=== PATIENT | male | born 1985 | race Caucasian/White ===

== ENCOUNTER 2020-07-21 13:28 | Inpatient (IN) | payer MEDICAID, SELFPAY ==
[2020-07-21] VITALS (10 sets, daily range): BP systolic 141–168; BP diastolic 73–112; PULSE 70–110; RESP 10–20; TEMP 36.6–36.7; O2SAT 92–98; BMI 25.0
--- NOTE | 2020-07-21 13:36 | XR_ITS ---
WS: [id number] Portable AP upright chest, 07/21/2020 Clinical Data: dyspnea/cough Comparison: None. Findings: No nodules, masses or effusions are seen. The heart is normal. The pulmonary vascularity is not increased. No pneumonia or pneumothorax is seen. Monitor leads are on the chest wall. XR/XR chest 1V portable [id number] Impression: Negative chest.
--- NOTE | 2020-07-21 13:53 | PC.NURSE ---
Sheriff Mcmanus at bedside, RT at bedside to draw ABG, and XR performed at bedside. Blood drawn by nurse, labeled and sent to lab.
[2020-07-21 13:57] LABS: ABG PCO2 56.2 mmHg (35-45); ABG PH Result 7.36 (7.35-7.45); Alveolar-Arterial Oxygen Gradi 1.7 mmHg (5-10); Arterial Blood Gas Hematocrit 40.3 % (42-52); Base Excess ABG 5.1 mmol/L (-2.0-2.0); Blood Gas Allen Test Pos; Blood Gas Operator Identificat glc; Blood Gas Sample Site Radial, left; Blood Gas Sample Type Arterial; Carboxyhemoglobin 2.8 %THgb (0.4-20.1); HGB O2 Sat 91.2 % (95-100); Ionized Calcium Level - ABG 1.3 mmol/L (1.1-1.4); Methemoglobin 0.3 % (0.4-1.5); Oxygen Device ROOM AIR; Oxygen Saturation ABG 94.1; Potassium Level - ABG 3.4 mmol/L (3.5-5.0); Total Hemoglobin 13.1 g/dL (14-18)
--- NOTE | 2020-07-21 14:15 | W.ED.OVERDOS ---
HPI - Overdose General: Chief Complaint: Overdose Stated Complaint: POST OVERDOSE/ N/V Time Seen by Provider: 07/21/20 13:36 History of Present Illness: HPI Narrative: 34-year-old male presents the emergency room via EMS in police custody. He had done some heroin earlier was found unresponsive when EMS arrived bystanders were performing CPR they stop CPR he was found to have a pulse and have respirations he was given Narcan and did become more awake. He is lethargic but answers questions now is complaining of some chest discomfort. He has a known history of drug abuse. MD complaint: accidental overdose Onset (ago): hour(s) Review of Systems General: Reports: ROS unobtainable due to mental status PFSH ED PFSH: Social History Smoking and tobacco status: current every day smoker cigarettes Alcohol intake: current Substance/Drug Use: current Substance/Drug use frequency: daily Substance/Drug use type: Heroin Physical Exam Const: COMMON NORMALS: no acute distress GENERAL APPEARANCE: cooperative and comfortable ORIENTATION/CONSCIOUSNESS: Yes awake, Yes oriented to person, Yes oriented to place and Yes oriented to time HENMT: COMMON NORMALS: normocephalic, atraumatic and hearing grossly normal bilaterally HEAD & SCALP: normocephalic and atraumatic Eye: COMMON NORMALS: Equal, round and reactive pupils present, EOMs intact bilaterally, conjunctivae normal and no scleral icterus CONJUNCTIVA: Yes conjunctivae normal PUPIL: Yes Equal, round and reactive pupils present Neck/C-Spine: COMMON NORMALS: full ROM, no lymphadenopathy, supple and no JVD Lymph: LYMPHATIC: no lymphadenopathy noted and no lymphedema noted Resp: COMMON NORMALS: normal respiratory effort, No retractions, No use of accessory muscles and clear to auscultation bilaterally AUSCULTATION: clear to auscultation bilaterally Cardio: COMMON NORMALS: no JVD, regular rate, regular rhythm and No murmurs present (Cardio) RATE: regular rate RHYTHM: regular rhythm GI: COMMON NORMALS: Soft to palpation and No hepatosplenomegaly present AUSCULTATION: Yes normoactive bowel sounds PALPATION: Yes Soft to palpation, No Tenderness to palpation present (GI), No Guarding due to palpation present (GI) and Yes No hepatosplenomegaly present Extremity: COMMON NORMALS: normal to inspection, capillary refill normal, no clubbing, cyanosis or edema, no calf tenderness and no pedal edema Neuro: SENSORIUM/ORIENTATION: Yes oriented to person, Yes oriented to place and Yes oriented to time Skin: COMMON NORMALS: no rashes or lesions noted GENERAL SKIN EXAM: no rashes or lesions noted Course Vital Signs: Vital signs: Vital Signs Temperature 98.1 F 07/22/20 13:13 Pulse Rate 64 07/22/20 13:13 Respiratory Rate 93 H 07/22/20 13:13 Blood Pressure 98/61 07/22/20 13:13 Pulse Oximetry 91 07/22/20 13:13 MDM - Overdose MDM Narrative: Medical decision making narrative: Patient given Narcan in the field he is somewhat sedate but is awake and alert enough to answer questions and give history. We monitored for time reviewed his labs we are going to discharge him custody of law enforcement. After brief discussion law enforcement patient began to complain of suicidal ideation. Went back and reassessed patient he expressly now stated he was going to harm himself whereas prior he had denied it. Discussed with Dr. Thompson will go ahead and admit to the [facility]. Lab Data: Labs: Lab Results 07/21/20 07/21/20 07/21/20 Range/Units 13:44 13:49 13:49 WBC Cancelled Corrected WBC Cancelled RBC Cancelled Hgb Cancelled Hct Cancelled MCV Cancelled MCH Cancelled MCHC Cancelled RDW Cancelled Plt Count Cancelled MPV Cancelled Gran % Cancelled Neut % (Auto) Cancelled Lymph % (Auto) Cancelled Bleckley % (Auto) Cancelled Eos % (Auto) Cancelled Baso % (Auto) Cancelled Neut # (Auto) Cancelled Lymph # (Auto) Cancelled Bleckley # (Auto) Cancelled Eos # (Auto) Cancelled Baso # (Auto) Cancelled Absolute Gran (aut o) Cancelled Nucleated RBC % (a uto) Cancelled Nucleated RBCs # Cancelled Specimen Type Arterial Sample Site Radial, left ABG pH 7.36 (7.35-7.45) ABG pCO2 56.2 H (35-45) mmHg ABG pO2 68.0 L (80.0-100.0) mmH g ABG HCO3 32.0 H (22-26) mmol/L ABG O2 Saturation 94.1 ABG Base Excess 5.1 H (-2.0-2.0) mmol/ L Dylan Test Pos A-a O2 Gradient 1.7 L (5-10) mmHg Hematocrit 40.3 L (42-52) % Hgb O2 Saturation 91.2 L (95-100) % Carboxyhemoglobin 2.8 (0.4-20.1) %THgb Methemoglobin 0.3 L (0.4-1.5) % Total Hemoglobin 13.1 L (14-18) g/dL Sodium 141.0 136 (131-143) mmol/L Potassium 3.4 L 3.6 (3.5-5.0) mmol/L Glucose 108.0 109 (70-115) mg/dL Ionized Calcium 1.3 (1.1-1.4) mmol/L O2 Delivery Device Room air FiO2 21.0 % Software Engineering Project Manager ID [id number] Chloride 97 L (98-107) mmol/L Carbon Dioxide 30 H (22-29) mmol/L Anion Gap 12.6 (5-19) BUN 15 (6-20) mg/dL Creatinine 0.8 (0.7-1.2) mg/dL GFR Calculation 110.0 (90-130) mL/min Calculated Osmolal ity 283 L (285-295) mOsm/k g Calcium 9.7 (8.5-10.5) mg/dL Magnesium 1.9 (1.7-2.3) mg/dL Total Bilirubin 0.4 (0.15-1.2) mg/dL AST 45 H (0-40) U/L ALT 60 H (0-41) U/L Alkaline Phosphata se 76 (40-130) IU/L Creatine Kinase 77 (39-308) U/L Total Protein 7.4 (6.6-8.7) g/dL Albumin 4.4 (3.5-5.2) g/dL Globulin 3.0 (1.3-4.6) g/dL Lipase 7 L (13-60) U/L Urine Color (Yellow) Urine Appearance (CLEAR) Urine pH (5-7) Ur Specific Gravit y (1.005-1.030) Urine Protein (Negative) Urine Glucose (UA) (Normal) Urine Ketones (Negative) Urine Blood (Negative) Urine Nitrate (Negative) Urine Bilirubin (Negative) Urine Urobilinogen (Negative) mg/dL Ur Leukocyte Rachele ase (Negative) 07/21/20 07/21/20 Range/Units 14:21 14:40 WBC 9.2 Corrected WBC RBC 4.57 Hgb 13.1 Hct 40.5 L MCV 88.6 MCH 28.7 MCHC 32.3 RDW 13.3 Plt Count 169 MPV 10.3 Gran % Neut % (Auto) 74.2 Lymph % (Auto) 18.8 Bleckley % (Auto) 5.0 Eos % (Auto) 1.1 Baso % (Auto) 0.7 Neut # (Auto) 6.81 Lymph # (Auto) 1.7 Bleckley # (Auto) 0.5 Eos # (Auto) 0.1 Baso # (Auto) 0.1 Absolute Gran (aut o) Nucleated RBC % (a uto) 0 Nucleated RBCs # 0.0 Specimen Type Sample Site ABG pH (7.35-7.45) ABG pCO2 (35-45) mmHg ABG pO2 (80.0-100.0) mmH g ABG HCO3 (22-26) mmol/L ABG O2 Saturation ABG Base Excess (-2.0-2.0) mmol/ L Dylan Test A-a O2 Gradient (5-10) mmHg Hematocrit (42-52) % Hgb O2 Saturation (95-100) % Carboxyhemoglobin (0.4-20.1) %THgb Methemoglobin (0.4-1.5) % Total Hemoglobin (14-18) g/dL Sodium (131-143) mmol/L Potassium (3.5-5.0) mmol/L Glucose (70-115) mg/dL Ionized Calcium (1.1-1.4) mmol/L O2 Delivery Device FiO2 % Software Engineering Project Manager ID Chloride (98-107) mmol/L Carbon Dioxide (22-29) mmol/L Anion Gap (5-19) BUN (6-20) mg/dL Creatinine (0.7-1.2) mg/dL GFR Calculation (90-130) mL/min Calculated Osmolal ity (285-295) mOsm/k g Calcium (8.5-10.5) mg/dL Magnesium (1.7-2.3) mg/dL Total Bilirubin (0.15-1.2) mg/dL AST (0-40) U/L ALT (0-41) U/L Alkaline Phosphata se (40-130) IU/L Creatine Kinase (39-308) U/L Total Protein (6.6-8.7) g/dL Albumin (3.5-5.2) g/dL Globulin (1.3-4.6) g/dL Lipase (13-60) U/L Urine Color Yellow (Yellow) Urine Appearance Clear (CLEAR) Urine pH 5 (5-7) Ur Specific Gravit y 1.030 (1.005-1.030) Urine Protein Neg (Negative) Urine Glucose (UA) Norm (Normal) Urine Ketones Negative (Negative) Urine Blood Neg (Negative) Urine Nitrate Negative (Negative) Urine Bilirubin Neg (Negative) Urine Urobilinogen Neg (Negative) mg/dL Ur Leukocyte Rachele ase Negative (Negative) Discharge Plan Discharge Patient Disposition: Admitted As Inpatient Admit Provider: Vance Thompson Clinical Impression: Drug overdose, Opioid abuse, Suicidal ideation Condition: Stable Discharge Orders: Discharge Order (Routine); Ordered 07/22/20 Ordered By: Vance Thompson Interventions: ED Discharge Assessment Last Done: 07/21/20 17:08 ED Charges Last Done: 07/21/20 17:08 Discharge Date/Time: 07/21/20 17:12 Coding Level of Care Code ED Farm Management Adviser for Stormy Mas
[2020-07-21 14:20] LABS: Alanine Aminotransferase 60 U/L (0-41); Albumin Level 4.4 g/dL (3.5-5.2); Alkaline Phosphatase 76 IU/L (40-130); Anion Gap 12.6 (5-19); Aspartate Amino Transferase 45 U/L (0-40); Blood Urea Nitrogen 15 mg/dL (6-20); Calcium 9.7 mg/dL (8.5-10.5); Carbon Dioxide 30 mmol/L (22-29); Chloride 97 mmol/L (98-107); Creatine Phosphokinase 77 U/L (39-308); Glucose 109 mg/dL (65-115); Lipase 7 U/L (13-60); Magnesium 1.9 mg/dL (1.7-2.3); Osmolality Calculated 283 mOsm/kg (285-295); Potassium 3.6 mmol/L (3.5-5.1); Sodium 136 mmol/L (136-145); Total Bilirubin 0.4 mg/dL (0.15-1.2); Total Protein 7.4 g/dL (6.6-8.7)
[2020-07-21 14:48] LABS: Add Urine Microscopic? NO
[2020-07-21 14:49] LABS: Basophils # 0.1 10^3/uL (0.0-0.1); Basophils % 0.7 %; Eosinophils # 0.1 10^3/uL (0.0-0.8); Eosinophils % 1.1 %; Hematocrit 40.5 % (42.0-52.0); Hemoglobin 13.1 g/dL (11.7-16.6); Lymphocytes # 1.7 10^3/uL (0.8-4.8); Lymphocytes % 18.8 %; Mean Corpuscular HGB Conc 32.3 g/dL (30.0-36.0); Mean Corpuscular Hemoglobin 28.7 pg (28.0-34.0); Mean Corpuscular Volume 88.6 fL (80-94); Mean Platelet Volume 10.3 fL (7.4-10.4); Monocytes # 0.5 10^3/uL (0.2-0.9); Neutrophils # 6.81 10^3/uL (1.8-7.7); Neutrophils % 74.2 %; Nucleated Red Blood Cells % 0 %; Platelet Count 169 10^3/cmm (130-400); Red Blood Count 4.57 10^6/uL (4.1-5.3); Red Cell Distribution Width 13.3 % (12.1-15.1); White Blood Count 9.2 10^3/uL (4.0-10.0)
[2020-07-21] MEDS: sodium chloride 0.9% 1,000 ML 999 ML IV ×2 (14:51→16:03)
[2020-07-21 14:57] LABS: Bilirubin Urine Neg (Negative); Blood Urine Neg (Negative); Glucose Urine UA Norm (Normal); Ketones Urine Negative (Negative); Leukocyte Esterase Urine Negative (Negative); Nitrate Urine Negative (Negative); Protein Urine Neg (Negative); Urine Appearance Clear (CLEAR); Urine Color Yellow (Yellow); Urobilinogen Urine Neg (Negative); pH Urine 5 (5-7)
--- NOTE | 2020-07-21 16:07 | PC.NURSE ---
When rounding on pt, officer in the room was noted to be telling pt Man, aren't you wanting to kill yourself? Aren't you suicidal? When attempting to discharge pt, pt states If you discharge me, I'm just going to go back to [facility] tonight. I want to go to the stress unit . Dr Styles notified and at bedside.
--- NOTE | 2020-07-21 18:07 | PC.NURSE ---
ARRIVAL TO UNIT, IV REMOVAL This nurse went to ED to take patient to [facility]. ED nurse stated they were unable to take patient down as they had influx of patients. IV removed by this nurse on arrival to unit. IV cath tip intact, covered with 2x2 and coban.
[2020-07-21] MEDS: acetaminophen 325 mg Tablet 650 MG PO (19:35)
[2020-07-21] MEDS: CLONazepam 1 mg Tablet PO (21:27)
[2020-07-22 06:00] VITALS: BP 98/61; PULSE 64; RESP 93; TEMP 36.7; O2SAT 91
[2020-07-22] MEDS: CLONazepam 1 mg Tablet PO (08:39)
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
[2020-07-22 13:13] VITALS: BP 98/61; PULSE 64; RESP 93; TEMP 36.7; O2SAT 91
== END 2020-07-22 13:52 | disposition home or self-care (01) | DRG 918 ==
LOC: ER 16:37 → NP 16:44
PROVIDERS: Admitting Provider Psychiatry & Neurology Psychiatry; Emergency Provider Family Medicine; PCP Nurse Practitioner; Visit Provider Psychiatry & Neurology Psychiatry
DX: T40.1X1A Poisoning by heroin, accidental (unintentional), initial encounter (principal); F32.1 Major depressive disorder, single episode, moderate; F15.20 Other stimulant dependence, uncomplicated; Y92.89 Other specified places as the place of occurrence of the external cause; F17.210 Nicotine dependence, cigarettes, uncomplicated; F43.12 Post-traumatic stress disorder, chronic; F41.1 Generalized anxiety disorder
CPT/HCPCS: 12345; 36415; 36600; 71045; 80051; 80053; 81003; 82550; 82810; 83690; 83735; 83986; 85025; 99283; J7030

== ENCOUNTER 2020-10-04 08:58 | Emergency (ER) | payer MEDICAID, SELFPAY ==
[2020-10-04 08:59] VITALS: BP 150/103; PULSE 80; RESP 18; TEMP 36.3; O2SAT 100; BMI 25.0
--- NOTE | 2020-10-04 09:17 | CT_ITS ---
WS: [id number] CT ABDOMEN AND PELVIS WITH CONTRAST HISTORY: RUQ pain, severe TECHNIQUE: Imaging performed of the abdomen and pelvis with IV contrast. Single phase imaging of the abdomen. Coronal and sagittal reformats are submitted. All CT scans at [facility] use at least one of these dose optimization techniques: automated exposure control; mA and/or kV adjustment per patient size (includes targeted exams where dose is matched to clinical indication); or iterativ e reconstruction. IV CONTRAST: Omnipaque 300; 95 mL IV. Oral contrast: No DLP: 804.08 mGy.cm COMPARISON: 06/24/2015 Lower thorax: Lung bases are clear. Heart is normal size. Small hiatal hernia. Liver/biliary system: Normal size with no intrahepatic dilatation. Gallbladder: Normal. No gallstones or wall thickening. No pericholecystic fluid. Pancreas: Normal. Spleen: Spleen is top normal size. No mass. Adrenal glands: Normal. Right kidney: Mild delayed enhancement and excretion from the RIGHT kidney. There is very mild RIGHT hydroureteronephrosis. There is a 2 mm calcification at the RIGHT UV junction. No additional calcific ations. Left kidney: Normal. Aorta: Normal. Lymphadenopathy: None. Free fluid: None. GI tract: Normal appendix. Mild constipation. No mucosal thickening or bowel wall abnormality. Abdominal wall: Unremarkable abdominal wall. No hernia. Pelvis: Normal. Bones: Unremarkable. CT/CT abdomen pelvis w con* [id number] IMPRESSION: 1. Mild RIGHT hydroureteronephrosis secondary to a 2 mm calcification at the U V junction. 2. Normal appendix.
--- NOTE | 2020-10-04 09:18 | W.ED.ABDPA2 ---
HPI - Abdominal Pain General: Chief Complaint: Abdominal Pain Stated Complaint: ABD PAIN Time Seen by Provider: 10/04/20 09:00 History of Present Illness: HPI narrative: Patient presents from the retirement in custody with cough with right upper quadrant pain severe started this morning. Denies any injury illness. Denies any fever chills nausea vomiting or diarrhea. Said just felt like some explode inside his abdomen. Does have a history of hepatitis C. Not had a viral load test in a long time. MD elicited complaint: abdominal pain Pertinent past history: other (Hepatitis C) Onset (ago): hour(s) Location: RUQ Severity: severe Quality: stabbing and aching Radiation: none Migration to: no migration Exacerbating factors: nothing Relieving factors: nothing Associated Symptoms: Reports no associated symptoms; Denies chills, fever(s), nausea and vomiting Review of Systems Const: Denies: fever(s), chills or body aches Eyes: Denies: change in vision or blurry vision ENMT: Denies: throat pain or nasal congestion Card: Denies: chest pain or dyspnea on exertion Resp: Denies: dyspnea, productive cough or non-productive cough GI: Reports: abdominal pain; Denies: nausea or vomiting : Denies: difficulty urinating Musc: Denies: extremity pain Skin/Breast: Denies: rash Neuro: Denies: headache(s) Psych: Denies: anxiety or depression Ryan/Lymph: Denies: easy bruising PFS ED PFSH: Social History Smoking and tobacco status: current every day smoker cigarettes Alcohol intake: current Physical Exam Const: COMMON NORMALS: no acute distress, average body habitus and patient oriented x3 HENMT: COMMON NORMALS: normocephalic HEAD & SCALP: normal to inspection and normocephalic FACE & SINUS: normal facial exam Eye: COMMON NORMALS: conjunctivae normal GENERAL EYE: appearance normal, both eyes and all related structures CONJUNCTIVA: Yes conjunctivae normal Neck/C-Spine: COMMON NORMALS: no JVD Chest: COMMONS NORMALS: normal inspection of the chest Resp: COMMON NORMALS: normal respiratory effort and clear to auscultation bilaterally AUSCULTATION: clear to auscultation bilaterally Cardio: COMMON NORMALS: no JVD, regular rate and regular rhythm RATE: regular rate RHYTHM: regular rhythm GI: COMMON NORMALS: Normal to inspection, nondistended, normoactive bowel sounds present AUSCULTATION: Yes normoactive bowel sounds PALPATION: Yes Tenderness to palpation present (GI) Details: RUQ and Yes Hepatomegaly present Extremity: COMMON NORMALS: normal to inspection and full ROM Neuro: COMMON NORMALS: patient oriented x3 Course Vital Signs: Vital signs: Vital Signs Temperature 97.4 F L 10/04/20 08:59 Pulse Rate 80 10/04/20 08:59 Respiratory Rate 18 10/04/20 08:59 Blood Pressure 150/103 10/04/20 08:59 Pulse Oximetry 100 10/04/20 08:59 Discharge Plan Discharge Prescriptions: No Action No Known Home Medications RF: 0 Coding Level of Care Code ED Ship Painter Helper for Storym Mas
[2020-10-04 09:24] LABS: Basophils # 0.1 10^3/uL (0.0-0.1); Basophils % 0.9 %; Eosinophils # 0.3 10^3/uL (0.0-0.8); Eosinophils % 3.3 %; Hematocrit 42.2 % (42.0-52.0); Hemoglobin 14.4 g/dL (11.7-16.6); Lymphocytes # 3.2 10^3/uL (0.8-4.8); Lymphocytes % 36.4 %; Mean Corpuscular HGB Conc 34.1 g/dL (30.0-36.0); Mean Corpuscular Hemoglobin 29.7 pg (28.0-34.0); Monocytes # 0.6 10^3/uL (0.2-0.9); Monocytes % 7.3 %; Neutrophils # 4.55 10^3/uL (1.8-7.7); Neutrophils % 51.9 %; Nucleated Red Blood Cells % 0 %; Platelet Count 178 10^3/cmm (130-400); Red Blood Count 4.85 10^6/uL (4.1-5.3); Red Cell Distribution Width 13.3 % (12.1-15.1); White Blood Count 8.8 10^3/uL (4.0-10.0)
[2020-10-04] MEDS: ondansetron 2 mg/ML SDV 2 mL 8 MG IVP (09:24)
[2020-10-04] MEDS: ketorolac 30 mg/mL INJ IVP (09:24)
[2020-10-04] MEDS: iohexol 300 mg/mL 100 mL Btl IV (09:27)
[2020-10-04] MEDS: sodium chloride 0.9% 1,000 ML 999 ML IV (09:34)
[2020-10-04 09:48] LABS: Alanine Aminotransferase 116 U/L (0-41); Albumin Level 4.4 g/dL (3.5-5.2); Alkaline Phosphatase 99 IU/L (40-130); Anion Gap 13.4 (5-19); Aspartate Amino Transferase 45 U/L (0-40); Blood Urea Nitrogen 9 mg/dL (6-20); Calcium 9.3 mg/dL (8.5-10.5); Carbon Dioxide 29 mmol/L (22-29); Chloride 102 mmol/L (98-107); Globulin 2.8 g/dL (1.3-4.6); Glomerular Filtration Rate 109.4 mL/min (90-130); Glucose 88 mg/dL (65-115); Lipase 17 U/L (13-60); Osmolality Calculated 290 mOsm/kg (285-295); Potassium 3.4 mmol/L (3.5-5.1); Sodium 141 mmol/L (136-145); Total Bilirubin 0.2 mg/dL (0.15-1.2); Total Protein 7.2 g/dL (6.6-8.7)
[2020-10-04] MEDS: tamsulosin 0.4 mg Capsule 0.8 MG PO (10:14)
[2020-10-04 10:35] LABS: Add Urine Culture? No; Add Urine Microscopic? YES; Bacteria Urine TRACE /hpf; Bilirubin Urine Neg (Negative); Blood Urine 2+ (Negative); Glucose Urine UA Norm (Normal); Ketones Urine Negative (Negative); Leukocyte Esterase Urine Negative (Negative); Nitrate Urine Negative (Negative); Protein Urine 1+ (Negative); Specific Gravity, Urine 1.015 (1.005-1.030); Squamous Epithelial Cell Urine 0-4 /hpf (0-5); Urine Appearance Clear (CLEAR); Urine Color Yellow (Yellow); Urobilinogen Urine Norm (Negative); pH Urine 5 (5-7)
[2020-10-04 11:16] VITALS: BP 156/72; PULSE 74; RESP 18; O2SAT 98
== END 2020-10-04 11:25 | disposition home or self-care (01) ==
PROVIDERS: Emergency Provider Nurse Practitioner Family; PCP Nurse Practitioner
DX: R10.9 Unspecified abdominal pain (principal); F17.210 Nicotine dependence, cigarettes, uncomplicated
CPT/HCPCS: 12345; 74177; 80053; 81001; 83690; 85025; 96361; 96374; 96375; 99282; 99283; J1885; J2405; J7030; Q9967